=== PATIENT | male | born 1950 | race Caucasian/White ===

== ENCOUNTER 2017-01-03 10:57 | Day surgery (SDC) | payer SELFPAY ==
[~2017-01-03] VITALS: Ht 185.4 cm; Wt 82.8 kg
[~2017-01-03 10:57] MED LIST: ASPI-557 PO; IBUP200C5 PO
[2017-01-03 11:16] VITALS: BP 156/87; PULSE 83; RESP 14; TEMP 98.2; O2SAT 97; Ht 185.4 cm; Wt 82.8 kg
[2017-01-03] MEDS: PHENYLEPHRINE 2.5% EYE DROPS 5ml LEFT EYE SCH ×3 (11:50→12:07)
[2017-01-03] MEDS: CYCLOPENTOLATE 1% EYE DROPS 2 ML BOTTLE LEFT EYE SCH ×3 (11:51→12:08)
[2017-01-03] MEDS: TROPICAMIDE 1% EYE DROPS 3ml LEFT EYE SCH ×3 (11:51→12:08)
[2017-01-03] MEDS: GATIFLOXACIN 0.5% EYE DROPS 2.5ml LEFT EYE SCH ×3 (11:51→12:08)
--- NOTE | 2017-01-03 11:52 | ANESPREOP ---
Anesthesia Record Date and Time DATE: 01/03/17 TIME: 1139 Proposed Surgical Procedure CATARACT LEFT Allergies: Coded Allergies: No Known Allergies (Unverified , 01/02/17) Ht/Wt/BMI Height: 6 ' 1.00 " Weight: 82.800 kg BMI: 24.1 kg/m2 Vital Signs Date Time Temp Pulse Resp B/P Pulse Ox O2 Delivery O2 Flow Rate FiO2 01/03/17 11:16 98.2 83 14 156/87 97 Room Air Medications Inpatient Medications Current Medications Medications (Trade) Dose Ordered Sig/Kenneth Start Time Stop Time Status Last Admin Dose Admin Gatifloxacin (Zymaxid) 1 drop Q5M 01/03/17 17:00 01/03/17 17:11 Cyclopentolate HCl (Cyclate 1%) 1 drop Q5M 01/03/17 17:00 01/03/17 17:11 Tropicamide (Mydriacyl 1% Eye Drops) 1 drop Q5M 01/03/17 17:00 01/03/17 17:11 Phenylephrine HCl (Harris-Synephrine 2.5% Eye Drops) 1 drop Q5M 01/03/17 17:00 01/03/17 17:11 Aspirin (Aspir 81) 81 Mg Tablet.dr, 1 TAB PO DAILY, (Reported) Last Taken: on 12/13/16 Ibuprofen (Advil) 200 Mg Capsule, 1-2 CAP PO Q4H PRN for PAIN, (Reported) Last Taken: on 12/13/16 Currently on Beta Sully: No Medical/Surgical History Anesthesia PMH: Denies: Anesthesia Reactions, Arthritis, Cancer, Clotting Problems, Glaucoma, Malignant Hyperthermia, Reflux Smoking Status: Never smoker Use Chewing Tobacco?: No Substance Use Type: does not use Alcohol Intake: none Past Surgical History Orthopedic Surgeries: Abdominal Surgeries: Genitourinary Surgeries: Cardiac Surgeries: Endocrine Surgeries: Reproductive Surgeries: Neurological Surgeries: Ear Surgeries: Nose Surgeries: Throat Surgeries: Other Surgeries: Anesthesia Adverse Reactions: FOUND none Family Hx of Anesthesia Advers: none Hx of Motion Sickness: No Physical Exam Respiratory: Lungs clear, Wheezing Cardiovascular: FOUND Regular rate, rhythm Airway Assessment Mallampati Score: II TMD: 3 Fingerbreadths Neck Extension: Good Overall Assessment: No Airway Concerns ASA: 2 Plan Anesthesia Plan: MAC Discussion Discussed risks/options/alternatives of anesthesia and questions answered. Patient consents. Nursing pain assessment noted. Attestation Statement Prior to the delivery of any anesthetic medication, I examined the patient, developed the plan, obtained the patient's consent and discussed the risk and benefits of the procedure with the patient/guardian. ALEXIS RENTERIA CRNA January 03, 2017 11:52
[2017-01-03] MEDS ORDERED: MIDAZOLAM 2mg/2ml INJECTION ONE (12:09)
[2017-01-03] MEDS ORDERED: SALINE FLUSH 10ml SYRINGE ONE (12:16)
[2017-01-03 13:07] VITALS: BP 138/92; PULSE 69; RESP 14; TEMP 97.9; O2SAT 99
--- NOTE | 2017-01-03 13:17 | ANESPO ---
Post-Op Note Date 01/03/17 Time: 13:16 Status Pt Participated in Evaluation: Pt participated in person Vital Signs Date Time Temp Pulse Resp B/P Pulse Ox O2 Delivery O2 Flow Rate FiO2 01/03/17 13:07 97.9 69 14 138/92 99 Room Air Respiratory Function: Airway patent Cardiovascular Function: Regular pulse Mental Status: Alert/oriented Pain Level Intensity: 0 Hydration: Taking po fluids Complications during Recovery None apparent Follow-Up Instructions Instructions Per Surgeon ALEXIS RENTERIA CRNA January 03, 2017 13:17
[2017-01-03 13:22] VITALS: BP 137/82; PULSE 78; RESP 16; O2SAT 96
[2017-01-03] MEDS ORDERED: acetaZOLAMIDE SR 500 MG CAPSULE PO ONE (13:30)
[2017-01-03 13:37] VITALS: BP 140/88; PULSE 76; RESP 16; O2SAT 97
[2017-01-03] MEDS ORDERED: LIDOCAINE 1% (10mg/ml) 2ml SDV INJ ONE (17:00)
[2017-01-03] MEDS ORDERED: LIDOCAINE 3.5% EYE GEL PF 1ml OP ONE (17:00)
[2017-01-03] MEDS ORDERED: EPINEPHRINE 1mg/ml Pres.Free vl IO ONE (22:00)
[2017-01-03] MEDS ORDERED: LIDOCAINE 1% (10mg/ml) 30ml SDV IJ ONE (22:00)
[2017-01-03] MEDS ORDERED: BRIMONIDINE 0.2% EYE DROPS 5ml BOTH EYES ONE (22:00)
[2017-01-03] MEDS ORDERED: LIDOCAINE 4% (40mg/ml) INJ. PF 5ml AMP INFIL ONE (22:00)
[2017-01-03] MEDS ORDERED: VANCOMYCIN 500 MG INJECTION IV ONE (22:00)
[2017-01-03] MEDS ORDERED: PrednisoLONE 1% EYE DROPS 5ml LEFT EYE ONE (22:00)
[2017-01-03] MEDS ORDERED: TETRACAINE 0.5% EYE DROPS 4ml BOTTLE OP ONE (22:00)
[2017-01-03] MEDS ORDERED: ACETYLCHOLINE (MIOCHOL-E) OCULAR SYSTEM IO ONE (22:00)
[2017-01-03] MEDS ORDERED: NS FOR INJ. 20 ML VIAL INJ ONE (22:00)
[2017-01-03] MEDS ORDERED: TRYPAN BLUE 0.5 ML SYRINGE LEFT EYE ONE (22:00)
[2017-01-03] MEDS ORDERED: BALANCED SALT SOLUTION 15ml IRRIGATION IO ONE (22:00)
--- NOTE | 2017-01-05 12:18 | OPNOTEF ---
DATE OF OPERATION 01/03/2017 PREOPERATIVE AND POSTOPERATIVE DIAGNOSES Hypermature cataract, left eye. PROCEDURE Cataract extraction by phacoemulsification with insertion of posterior chamber intraocular lens, left eye. SURGEON Evan Bosch M.D. DESCRIPTION OF PROCEDURE The patient was given topical ophthalmic dilating drops, 2.5% phenylephrine, 1% tropicamide, 1% Cyclopentolate, topical antibiotic drops Zymaxid and topical 2% Xylocaine gel q. 5 minutes x 3 prior to arrival to the OR into the left eye. In the OR, the area about the left eye was prepped and draped in the usual sterile fashion with Betadine and 5% Betadine eyedrops into the left eye. The procedure began and was done entirely under the operating microscope. A sterile lid speculum was placed into the left eye and removed at the end of the procedure. Using a 1.2-mm blade, two paracentesis side ports were made approximately 180 degrees apart. 1% preservative lidocaine with epinephrine was instilled into the eye because the pupil would not dilate. Using Y-shaped hooks, the pupil was attempted to be mechanically dilated which did not dilate it much. Also it was noted that the anterior capsule was difficult to be seen. Viscoat was instilled into the eye, then evacuated and then an air bubble was placed into the eye and Trypan blue was instilled and then washed out of the eye with balanced saline solution. The purpose of this was to stain the anterior capsule so that a capsulotomy could be done and with a cystotome and capsular rhexis forceps, the capsulotomy was successfully done. A Malyugin ring had been placed into the eye in order to dilate the pupil mechanically. It was approximately 6.25 mm. The lens nucleus was loosened by hydrodissection. The phacoemulsification handpiece was introduced into the eye and the lens nucleus was successfully phacoemulsified. Hydrodissection was done again to loosen cortical material and the irrigation/aspiration handpieces were used to strip away all cortical material. This cataract was very unusual in that it had a posterior sub capsular component which was elevated and with removal of the nucleus, this portion of the cataract came out of the eye as did apparently the posterior capsule to which it was adherent. There was no vitreous observed to have come forward. Because of this, a Studio SBV model #230 lens with a power of 18.5 diopters was placed into the sulcus above the capsular bag of the left eye and centered. Viscoelastic was removed with the irrigation/aspiration handpieces. Miocol was instilled into the eye and the pupil came down to approximately 3 mm. 1 mg of vancomycin dissolved in 0.1 cc of normal saline was instilled into the eye. Incisions were hydrated to seal them, were tested, and noted to be watertight. Drops of Zymaxid, Pred Forte and Brimonidine were dropped onto the left eye and a shield taped over the eye, completing the procedure. Because of the use of Trypan blue and a mechanical device known as the Malyugin ring to widen the pupil, this is a hypermature cataract that was removed. Blood loss was minimal, less than 0.1 cc and the patient left the operating room in good condition. GIBRAN
== END 2017-01-03 13:49 | disposition home or self-care (01) ==
LOC: NSC 10:57
PROVIDERS: ATTEND Ophthalmology
DX: H25.813 Combined forms of age-related cataract, bilateral (principal); Z79.82 Long term (current) use of aspirin; Z79.1 Long term (current) use of non-steroidal anti-inflammatories (NSAID)